=== PATIENT | female | born 1960 | race Caucasian/White ===

== ENCOUNTER 2020-04-29 13:07 | Emergency (ER) | payer MEDICARE ==
[~2020-04-29] VITALS: Ht 170.2 cm; Wt 72.6 kg
[~2020-04-29 13:07] MED LIST: AMLO5; Aspirin EC81 MG PO; BACL10 PO; CEPH500 PO; ESOM20 PO; ESTR1; KADIAN; LOVA20 PO; METF500; METF500 PO; METO100ER; METO100ER PO; METO50ER; MORPHINE; MULVITMINF; NIFE10 PO; OXYACE5T PO; PROM25 PO; Prinivil5 MG PO; SERT100; SERT50; TIZA4 PO; VICODIN
[2020-04-29 13:36] LABS: BASOPHILS ABSOLUTE AUTO 0.06 K/mm3 (0.00-0.23); BASOPHILS PERCENT AUTO 1 % (0-2); EOSINOPHILS ABSOLUTE AUTO 0.13 K/mm3 (0.00-0.68); EOSINOPHILS PERCENT AUTO 1 % (0-6); Hematocrit 48.3 % (33.0-51.0); Hemoglobin 15.6 g/dL (11.5-16.0); IMMATURE GRAN ABSOLUTE AUTO 0.02 K/mm3 (0.00-0.10); IMMATURE GRAN PERCENT AUTO 0 % (0-1); LYMPHOCYTES PERCENT AUTO 19 % (21-46); MONOCYTES ABSOLUTE AUTO 0.59 K/mm3 (0.16-1.47); MONOCYTES PERCENT AUTO 6 % (4-13); Mean Corpuscular HGB 31.6 pg (26.0-34.0); Mean Corpuscular HGB Conc 32.3 g/dL (31.5-36.5); Mean Corpuscular Volume 98 fL (80-100); NEUTROPHILS ABSOLUTE AUTO 6.74 K/mm3 (1.96-9.15); NEUTROPHILS PERCENT AUTO 72 % (41-73); Platelet Count 273 K/mm3 (150-400); RDW Coefficient Variation 13.3 % (11.7-14.2); RDW Standard Deviation 48.2 fL (35.1-46.3); Red Blood Cell Count 4.94 M/mm3 (3.80-5.20); White Blood Cell Count 9.34 K/mm3 (4.00-11.30)
[2020-04-29 14:11] LABS: Alanine Aminotransfer (ALT/SGP 41 U/L (12-78); Albumin, Blood 4.4 g/dL (3.4-5.0); Albumin/Globulin Ratio 1.2 (0.8-1.8); Alk Phos 88 U/L (50-136); Anion Gap 4 mmol/L (6-16); Aspartate Aminotrans (AST/SGOT 24 U/L (12-37); Bilirubin, Total 0.4 mg/dL (0.1-1.0); Blood Urea Nitrogen 17 mg/dL (8-24); Bun/Creatinine Ratio 22.3 (12.0-20.0); CO2, Blood 29 mmol/L (21-32); Calcium, Blood 9.4 mg/dL (8.5-10.1); Chloride, Blood 105 mmol/L (98-108); Creatinine, Blood 0.76 mg/dL (0.40-1.00); Globulin, Blood 3.6 g/dL (2.2-4.0); Glomerular Filtration Rate >60 (60-); Glucose, Blood 157 mg/dL (70-99); Potassium, Blood 4.1 mmol/L (3.5-5.5); Sodium, Blood 138 mmol/L (136-145); Troponin I <0.015 ng/mL (0.000-0.040)
== END 2020-04-29 15:15 | disposition home or self-care (01) ==
LOC: ER 13:07
PROVIDERS: Physician Assistant
DX: I10 Essential (primary) hypertension (principal); E11.9 Type 2 diabetes mellitus without complications; E66.01 Morbid (severe) obesity due to excess calories; F17.210 Nicotine dependence, cigarettes, uncomplicated
CPT/HCPCS: 36415; 70450; 80053; 82947; 84484; 85025; 93005; 93010; 96374; 99285-25; J0360

== ENCOUNTER 2020-10-08 14:18 | Observation (INO) | payer MEDICARE ==
[~2020-10-08] VITALS: Ht 167.6 cm; Wt 74.5 kg
[2020-10-08 14:55] LABS: BASOPHILS ABSOLUTE AUTO 0.06 K/mm3 (0.00-0.23); BASOPHILS PERCENT AUTO 1 % (0-2); EOSINOPHILS ABSOLUTE AUTO 0.09 K/mm3 (0.00-0.68); EOSINOPHILS PERCENT AUTO 1 % (0-6); Hematocrit 41.7 % (33.0-51.0); IMMATURE GRAN ABSOLUTE AUTO 0.04 K/mm3 (0.00-0.10); IMMATURE GRAN PERCENT AUTO 0 % (0-1); LYMPHOCYTES ABSOLUTE AUTO 1.94 K/mm3 (0.84-5.20); LYMPHOCYTES PERCENT AUTO 19 % (21-46); MONOCYTES ABSOLUTE AUTO 0.74 K/mm3 (0.16-1.47); MONOCYTES PERCENT AUTO 7 % (4-13); Mean Corpuscular HGB 31.3 pg (26.0-34.0); Mean Corpuscular HGB Conc 33.6 g/dL (31.5-36.5); Mean Corpuscular Volume 93 fL (80-100); Mean Platelet Volume 10.5 fL (9.1-12.4); NEUTROPHILS ABSOLUTE AUTO 7.29 K/mm3 (1.96-9.15); NEUTROPHILS PERCENT AUTO 72 % (41-73); Platelet Count 231 K/mm3 (150-400); RDW Coefficient Variation 13.2 % (11.7-14.2); RDW Standard Deviation 45.4 fL (35.1-46.3); Red Blood Cell Count 4.48 M/mm3 (3.80-5.20); White Blood Cell Count 10.16 K/mm3 (4.00-11.30)
[2020-10-08 15:13] LABS: International Normalized Ratio 0.96; Prothrombin Time Results 10.3 Sec (9.7-11.5)
[2020-10-08 15:43] LABS: Alanine Aminotransfer (ALT/SGP 34 U/L (12-78); Albumin, Blood 3.7 g/dL (3.4-5.0); Albumin/Globulin Ratio 1.2 (0.8-1.8); Alk Phos 78 U/L (50-136); Anion Gap 8 mmol/L (6-16); Aspartate Aminotrans (AST/SGOT 28 U/L (12-37); Bilirubin, Total 0.7 mg/dL (0.1-1.0); Blood Urea Nitrogen 16 mg/dL (8-24); Bun/Creatinine Ratio 21.7 (12.0-20.0); CO2, Blood 26 mmol/L (21-32); Calcium, Blood 9.2 mg/dL (8.5-10.1); Chloride, Blood 106 mmol/L (98-108); Creatinine, Blood 0.74 mg/dL (0.40-1.00); Ethanol (Alcohol), Blood, Med <3 mg/dL; Globulin, Blood 3.1 g/dL (2.2-4.0); Glomerular Filtration Rate >60 (60-); Glucose, Blood 209 mg/dL (70-99); Sodium, Blood 140 mmol/L (136-145); Total Protein, Blood 6.8 g/dL (6.4-8.2)
[2020-10-08 17:25] LABS: Source, Urine Catheter
[2020-10-08 17:37] LABS: Appearance, Urine Clear (Clear); Bilirubin, Urine Neg (Neg); Blood, Urine Neg (Neg); Color, Urine Yellow (P-Yellow); Glucose Qualitative, Urine Neg (Neg); Ketones, Urine Neg (Neg); Leukocyte Esterase, Urine Neg (Neg); Nitrite, Urine Neg (Neg); Protein, Urine Neg (Neg); Urobilinogen, Urine NORM (Normal); pH, Urine 6.5 (5.0-8.0)
[2020-10-08 18:23] LABS: U Amphetamine Screen Not Detected; U Barbituate Screen Not Detected; U Benzodiazapine Screen DETECTED; U Buprenorphine Screen Not Detected; U Cannabinoids Screen Not Detected; U Cocaine Screen Not Detected; U Methadone Screen Not Detected; U Methamphetamine Screen Not Detected; U Opiates Screen Not Detected; U Oxycodone Screen DETECTED; U Phencyclidine Screen Not Detected; U Propoxyphene Screen Not Detected
--- NOTE | 2020-10-09 01:12 | NUR ---
PCU ADMIT PT BROUGHT TO PCU-09 BY AMRITA FROM ER @ APPROX 2340. PT ALERT, BILAT ARMS & LEGS MOVING UNCONTROLLABLY UPON ARRIVAL OT UNIT. PT UNABLE TO VERBALIZE @ TIME OF ARRIVAL, BUT PT ABLE TO NOD HEAD YES TO CONFIRM NAME & . PT THEN ABLE TO VERBALIZE FEW WORDS INTERMITTENTLY. UNABLE TO GET BP ON EITHER L ARM OR R ARM D/T PT UNCONTROLLABLE MOVEMENTS. BP THEN ATTEMPTED ON PT RLE W/ PT STATING "YOU HAVE TO HOLD IT DOWN." BP OBTAINED. VSS. MONITOR SHOWING SR, HR 80's. SPO2 > 92% ON RA. PT W/ CONTINUED FULL BODY, SEIZURE-LIKE ACTIVITY UNTIL SCHEDULED 1X DOSE OF IV ATIVAN GIVEN PER EMAR. PT BODY THEN RELAXED & PT WENT TO SLEEP. SEIZURE PADS IN PLACE. SIDE RAILS UP. BED ALARM ON. GARRIDO CATH PATENT & DRAINING. NS GTT & KCL GTT INFUSING PER ORDERS.
[2020-10-09 04:07] LABS: BASOPHILS ABSOLUTE AUTO 0.06 K/mm3 (0.00-0.23); BASOPHILS PERCENT AUTO 1 % (0-2); EOSINOPHILS ABSOLUTE AUTO 0.05 K/mm3 (0.00-0.68); EOSINOPHILS PERCENT AUTO 0 % (0-6); Hemoglobin 13.4 g/dL (11.5-16.0); IMMATURE GRAN ABSOLUTE AUTO 0.05 K/mm3 (0.00-0.10); IMMATURE GRAN PERCENT AUTO 0 % (0-1); LYMPHOCYTES ABSOLUTE AUTO 1.64 K/mm3 (0.84-5.20); LYMPHOCYTES PERCENT AUTO 13 % (21-46); MONOCYTES ABSOLUTE AUTO 0.74 K/mm3 (0.16-1.47); MONOCYTES PERCENT AUTO 6 % (4-13); Mean Corpuscular HGB 30.3 pg (26.0-34.0); Mean Corpuscular HGB Conc 32.7 g/dL (31.5-36.5); Mean Corpuscular Volume 93 fL (80-100); Mean Platelet Volume 10.3 fL (9.1-12.4); NEUTROPHILS ABSOLUTE AUTO 9.67 K/mm3 (1.96-9.15); NEUTROPHILS PERCENT AUTO 79 % (41-73); Platelet Count 204 K/mm3 (150-400); RDW Coefficient Variation 13.3 % (11.7-14.2); RDW Standard Deviation 45.5 fL (35.1-46.3); Red Blood Cell Count 4.42 M/mm3 (3.80-5.20); White Blood Cell Count 12.21 K/mm3 (4.00-11.30)
[2020-10-09 04:25] LABS: Alanine Aminotransfer (ALT/SGP 27 U/L (12-78); Albumin, Blood 3.2 g/dL (3.4-5.0); Albumin/Globulin Ratio 1.1 (0.8-1.8); Alk Phos 70 U/L (50-136); Anion Gap 4 mmol/L (6-16); Aspartate Aminotrans (AST/SGOT 21 U/L (12-37); Bilirubin, Total 0.7 mg/dL (0.1-1.0); Blood Urea Nitrogen 16 mg/dL (8-24); Bun/Creatinine Ratio 29.5 (12.0-20.0); CO2, Blood 27 mmol/L (21-32); Calcium, Blood 8.4 mg/dL (8.5-10.1); Chloride, Blood 114 mmol/L (98-108); Creatinine, Blood 0.54 mg/dL (0.40-1.00); Globulin, Blood 2.8 g/dL (2.2-4.0); Glomerular Filtration Rate >60 (60-); Glucose, Blood 133 mg/dL (70-99); Potassium, Blood 4.3 mmol/L (3.5-5.5); Sodium, Blood 145 mmol/L (136-145)
--- NOTE | 2020-10-09 05:27 | NUR ---
UPDATE / END OF SHIFT NOTE PT WOKE THIS AM @ APPROX 0500, ABLE TO SPEAK CLEARLY IN FULL SENTENCES. PT BILAT ARMS & LEGS W/ INTERMITTENT UNCONTROLLABLE MOVEMENTS WHEN AWAKE. PT STATES "IT GETS WORSE WHEN I COUGH. IT'S OKAY RIGHT NOW. I DO THIS, I'VE DONE THIS FOR 10 YRS. IT'S LIKE I'M DRUNK BUT I HAVEN'T DRANK ANYTHING." PT TRIES TO RECALL HEALTH HX, BUT STRUGGLES TO RECALL. PT A&O TO SELF & LOCATION, UNABLE TO RECALL CURRENT MONTH OR YEAR. PT STATES "I'LL REMEMBER, I JUST CAN'T RIGHT NOW." PT REPORTS STRUGGLING SINCE PASSING OF DAUGHTER, STATING "SHE 3 YEARS AGO." THEN LATER STATING "SHE LAST YEAR. SHE OF CHF, NO THAT WAS MY WHO HAD CHF." PT UNABLE TO PROVIDE CONSISTENT HX. PT STATES HAVING TO TAKE PAIN MEDICATION FOR HER BACK THEN STATES "I FELL DOWN THE STAIRS, MY DID NOT PUSH ME. HE DIDN'T GET TO ME IN THAT WAY, JUST EMOTIONALLY." PT ASKING FOR BLANKETS TO BE KEPT OFF STATING "I'M COLD, NO, NO, I'M HOT. I'M COLD, I MEAN I'M HOT. I'LL START SWEATING. I WANT THEM OFF, I'M COLD, I MEAN HOT. GOSH. I'M SORRY." PT COOPERATIVE. VSS. MONITOR SHOWING SR-ST, HR 60's-110's. SPO2 > 92% ON 3L NC. PT DENIES USING O2 AT HOME. NS GTT INFUSING PER ORDERS. PT NPO. BED ALARM ON. WILL CONTINUE TO MONITOR & PROVIDE CARE UNTIL REPORT OFF TO DAY SHIFT RN.
--- NOTE | 2020-10-09 09:30 | NUR ---
PHYSICIAN UPDATED PHYSICIAN UPDATED ON PT'S HYPERTENSIVE STATE. MEDICATION ORDERED AND GIVEN PER EMAR. SEE EHR.
[2020-10-09 14:49] LABS: Free Thyroxine 0.88 ng/dL (0.70-1.60)
[2020-10-09 14:52] LABS: Triiodothyronine, Free 2.02 pg/mL (2.18-3.98)
--- NOTE | 2020-10-09 17:59 | NUR ---
SHIFT SUMMARY PT ALERT AND ORIENTED X 4, CONFUSED AT TIMES. TREMORS AT TIMES, MEDICATION GIVEN PER EMAR. PT REPORTS RELIEF. TREMORS DECREASE. HR STABLE. BP HYPERTENSIVE AT TIMES. PHYSICIAN NOTIFIED, SEE NOTES. MEDICATION GIVEN PER EMAR. PT ABLE TO TURN SELF IN BED NEEDED. GARRIDO PATENT TO GRAVITY DRAIN. 24 HR URINE COLLECTION IN PROGRESS. URINE DRAINAGE BAG CURRENLTY IN ICE. EEG DONE THIS AM. BED ALARM IN PLACE FOR SAFETY D/T CONFUSION AND TREMOR LIKE ACTIVITY. WILL CONTINUE TO MONITOR UNTIL REPORT GIVEN TO GRACIELA JEAN.
--- NOTE | 2020-10-09 18:09 | NUR ---
SPOKE WITH PHYSICIAN SPOKE WITH PHYSICIAN REGARDING NO PSYCH CONSULT ORDERED PER NOTES. PHYSICIAN TO CONSIDER TELEHEALTH PSYCH CONSULT TOMORROW 4/3 IF NEEDED.
--- NOTE | 2020-10-10 06:06 | NUR ---
SHIFT SUMMARY PT A&O X 3; DENIES CHEST PAIN; VSS; O2 SATS >93 ON RA; SEVERAL SNACKS BROUGHT TO PT SHE STATED SHE WAS HUNGRY; DANGLED AT BEDSIDE EATING W/ NO CONCERN; 24HR URINE BEING COLLECTED; GARRIDO PATENT & DRAINING; NO DISTRESS NOTED THIS SHIFT; CALL LIGHT IN REACH; BED IN LOWEST POSITION; WILL CONTINUE TO MONITOR CLOSELY UNTIL HAND OFF TO DAY SHIFT RN.
--- NOTE | 2020-10-10 14:49 | NUR ---
SPOKE WITH PHYSICIAN ORDERS TO REMOVE GARRIDO CATHETER
[2020-10-10] MEDS ORDERED: LISI20 PO (16:44)
[2020-10-10] MEDS ORDERED: NAPR500 PO (16:45)
[2020-10-10] MEDS ORDERED: ATOR80 PO (16:46)
[2020-10-10] MEDS ORDERED: ESOM20 PO (16:48)
[2020-10-10] MEDS ORDERED: METF500 PO (16:48)
[2020-10-10] MEDS ORDERED: BACL10 PO (16:49)
[2020-10-10] MEDS ORDERED: Oxycodone HCl20 M1 PO (16:50)
--- NOTE | 2020-10-10 18:04 | NUR ---
SHIFT SUMMARY PT ALERT AND ORIENTED X 4. CONFUSED AT TIMES. BED ALARM IN PLACE FOR PT SAFETY. BP HYPERTENSIVE, MEDICATION GIVEN PER EMAR. SEE EHR. HR STABLE. OXYGEN SATURATION MAINTAINED ABOVE 92% ON RA. NO CP OR PRESSURE REPORTED. PT'S FAMILY MEMBER BROUGHT IN PT'S HOME MEDICATIONS. MEDICATIONS RECONCILED. CONTROLLED MEDICATIONS BROUGHT TO PHARMACY. OTHER MEDICATION IN PT'S CLOSET IN ROOM WITH LABEL. DISCUSSED WITH UNDERWRITER SOLICITATION DIRECTOR. GARRIDO CATHETER REMOVED PER PHYSICIAN ORDER. 24 HOUR URINE SENT TO LAB. WILL CONTINUE TO MONITOR UNTIL REPORT GIVEN TO NIGHTSHIFT RN.
--- NOTE | 2020-10-10 18:21 | NUR ---
PHYSICIAN UPDATED PHYSICIAN UPDATED ON PT'S HYPERTENSIVE STATE. MEDICATION ORDERED PER PHYSICIAN. SEE EMAR.
--- NOTE | 2020-10-10 19:10 | NUR ---
ASSUMED CARE RECEIVED BEDSIDE REPORT FROM ARIELLARN; PT A&O X 3; DENIES CHEST PAIN; BP CONTINUES TO FLUCTUATE, ELEVATED; PO LISINOPRIL SCHEDULED; O2 SATS >93 ON RA; SITTING AT BEDSIDE W/ NO DISTRESS NOTED; BELONGINGS AND CALL LIGHT IN REACH; BED IN LOWEST POSITION.
--- NOTE | 2020-10-11 04:57 | NUR ---
SHIFT SUMMARY PT & O X 3; CONFUSED AT TIMES; IMPULSIVE, BED ALARM ON; HOWEVER PLEASANT & COMPLIANT W/ CARE; DENIES CHEST PAIN; VSS; BP INCREASING THIS AM; O2 SATS >93 ON RA; SBA FOR BRP, WEAKNESS NOTED; PO SNACKS BROUGHT TO PT PRN; CALL LIGHT IN REACH; BED IN LOWEST POSITION; WILL CONTINUE TO MONITOR CLOSELY UNTIL HAND OFF TO DAY SHIFT RN.
--- NOTE | 2020-10-11 13:27 | NUR ---
MEDICATIONS PT TO BE DISCHARGED. HOME MEDICATIONS THAT WERE HELD IN OUR PHARMACY WERE RETURNED TO PT.
[2020-10-11] MEDS ORDERED: HYDCHL25 PO (14:30)
[2020-10-11] MEDS ORDERED: NIFE30ER PO (14:31)
--- NOTE | 2020-10-11 15:29 | NUR ---
PT DISCHARGE PT DISCHARGE ORDERS PROVIDED TO PT. PT SIGNED ALL [facility]HC[facility] PAPER[facility]. CHARGE, RN CALLED MEDICATIONS INTO PREFERRED PHARMACY. ASSISTED PT IN CALLING IN [facility] TO TRANSPORT TO HOME. IV REMOVED. TELEMETRY REMOVED. PT TAKEN TO [facility] BY WHEELCHAIR BY [employer] WITH BELONGINGS.
[2020-10-13 01:11] LABS: METANEPHRINE, PL 41.3 pg/mL (0.0-88.0); NORMETANEPHRINE, PL 98.9 pg/mL (0.0-136.8)
[2020-10-14 13:09] LABS: METANEPHRINE, UR 36 ug/L (Undefined)
[2020-10-14 15:09] LABS: DOPAMINE, URINE 40 ug/L (Undefined)
== END 2020-10-11 13:30 | disposition home or self-care (01) ==
LOC: ER 14:18 → PCU 14:19
PROVIDERS: Emergency Medicine; Internal Medicine; ADMIT Internal Medicine
DX: F44.5 Conversion disorder with seizures or convulsions (principal); F44.4 Conversion disorder with motor symptom or deficit; G93.40 Encephalopathy, unspecified; I16.0 Hypertensive urgency; I10 Essential (primary) hypertension; E11.9 Type 2 diabetes mellitus without complications; F17.200 Nicotine dependence, unspecified, uncomplicated; F32.9 Major depressive disorder, single episode, unspecified; E87.6 Hypokalemia; R09.02 Hypoxemia; Z79.891 Long term (current) use of opiate analgesic; Z79.82 Long term (current) use of aspirin; Z95.820 Peripheral vascular angioplasty status with implants and grafts; Z90.89 Acquired absence of other organs
CPT/HCPCS: 36415; 51701; 70450; 71045; 76536; 80053; 81003; 81050; 82384; 82947; 83036; 83835; 84439; 84443; 84481; 85025; 85610; 86376; 93005; 93010; 95819; 96361-59; 96372; 96374-59; 96375; 96375-59; 96376; 96376-59; 99285-25; A9270; G0378; G0480; J1200; J1630; J1650; J2060; J3010; J3480; J7030

== ENCOUNTER 2020-12-12 12:08 | Observation (INO) | payer MEDICARE ==
[~2020-12-12] VITALS: Ht 177.8 cm; Wt 77.1 kg
[~2020-12-12 12:08] MED LIST changes: +ATOR80 PO; +HYDCHL25 PO; +LISI20 PO; +NAPR500 PO; +NIFE30ER PO; +Oxycodone HCl20 M1 PO
[2020-12-12 12:32] LABS: BASOPHILS ABSOLUTE AUTO 0.05 K/mm3 (0.00-0.23); BASOPHILS PERCENT AUTO 1 % (0-2); EOSINOPHILS PERCENT AUTO 1 % (0-6); Hematocrit 43.4 % (33.0-51.0); IMMATURE GRAN ABSOLUTE AUTO 0.03 K/mm3 (0.00-0.10); IMMATURE GRAN PERCENT AUTO 0 % (0-1); LYMPHOCYTES ABSOLUTE AUTO 2.08 K/mm3 (0.84-5.20); LYMPHOCYTES PERCENT AUTO 26 % (21-46); MONOCYTES ABSOLUTE AUTO 0.75 K/mm3 (0.16-1.47); MONOCYTES PERCENT AUTO 9 % (4-13); Mean Corpuscular HGB 29.5 pg (26.0-34.0); Mean Corpuscular HGB Conc 32.3 g/dL (31.5-36.5); Mean Corpuscular Volume 91 fL (80-100); Mean Platelet Volume 10.2 fL (9.1-12.4); NEUTROPHILS ABSOLUTE AUTO 5.15 K/mm3 (1.96-9.15); NEUTROPHILS PERCENT AUTO 63 % (41-73); Platelet Count 330 K/mm3 (150-400); RDW Coefficient Variation 13.1 % (11.7-14.2); RDW Standard Deviation 44.2 fL (35.1-46.3); Red Blood Cell Count 4.75 M/mm3 (3.80-5.20); White Blood Cell Count 8.16 K/mm3 (4.00-11.30)
[2020-12-12 12:53] LABS: Alanine Aminotransfer (ALT/SGP 25 U/L (12-78); Albumin, Blood 3.9 g/dL (3.4-5.0); Albumin/Globulin Ratio 1.1 (0.8-1.8); Alk Phos 92 U/L (50-136); Anion Gap 2 mmol/L (6-16); Aspartate Aminotrans (AST/SGOT 15 U/L (12-37); Bilirubin, Total 0.3 mg/dL (0.1-1.0); Blood Urea Nitrogen 12 mg/dL (8-24); Bun/Creatinine Ratio 21.8 (12.0-20.0); CO2, Blood 30 mmol/L (21-32); Calcium, Blood 8.9 mg/dL (8.5-10.1); Chloride, Blood 111 mmol/L (98-108); Creatinine, Blood 0.55 mg/dL (0.40-1.00); Ethanol (Alcohol), Blood, Med <3 mg/dL; Globulin, Blood 3.5 g/dL (2.2-4.0); Glomerular Filtration Rate >60 (60-); Glucose, Blood 175 mg/dL (70-99); Potassium, Blood 4.1 mmol/L (3.5-5.5); Sodium, Blood 143 mmol/L (136-145); Total Protein, Blood 7.4 g/dL (6.4-8.2); Troponin I <0.015 ng/mL (0.000-0.040)
[2020-12-12 13:02] LABS: U Amphetamine Screen Not Detected; U Barbituate Screen Not Detected; U Benzodiazapine Screen Not Detected; U Buprenorphine Screen Not Detected; U Cannabinoids Screen Not Detected; U Cocaine Screen Not Detected; U Methadone Screen Not Detected; U Methamphetamine Screen Not Detected; U Opiates Screen Not Detected; U Oxycodone Screen DETECTED; U Phencyclidine Screen Not Detected; U Propoxyphene Screen Not Detected
[2020-12-12 14:11] LABS: Base Excess Venous 4.5 mmol/L; Bicarbonate Venous 27.7 mmol/L (24.0-30.0); PCO2 Venous 46.9 mmHg (38-42); PO2 Venous 116 mmHg (38-42)
[2020-12-12 15:05] LABS: SARS-Cov-2 (COVID-19) PCR, MMC NEGATIVE (NEGATIVE)
[2020-12-12 16:16] LABS: Source, Urine Catheter
[2020-12-12 16:30] LABS: Appearance, Urine Hazy (Clear); Bilirubin, Urine Neg (Neg); Blood, Urine Neg (Neg); Color, Urine Yellow (P-Yellow); Glucose Qualitative, Urine 4+ (Neg); Ketones, Urine Neg (Neg); Leukocyte Esterase, Urine Neg (Neg); Nitrite, Urine Neg (Neg); Protein, Urine 2+ (Neg); Urobilinogen, Urine NORM (Normal)
[2020-12-12 16:46] LABS: Bacteria Many /hpf; Red Blood Cells, Urine Not Seen /hpf (0-2); Squamous Epithelial Cells Mod /hpf (Few); White Blood Cells, Urine 0-2 /hpf (0-5)
== END 2020-12-12 22:56 | disposition home or self-care (01) ==
LOC: ER 12:08 → EOR 12:09
PROVIDERS: ADMIT Emergency Medicine
DX: R41.82 Altered mental status, unspecified (principal); R45.1 Restlessness and agitation; I10 Essential (primary) hypertension; I25.2 Old myocardial infarction; G43.909 Migraine, unspecified, not intractable, without status migrainosus; F17.210 Nicotine dependence, cigarettes, uncomplicated; Z20.822 Contact with and (suspected) exposure to COVID-19
CPT/HCPCS: 36415; 70450; 80053; 81001; 82803; 84484; 85025; 87077; 87086; 87186; 96374; 96375; 99285-25; G0378; G0480; J1200; J1630; J2060; J7030; U0004

== ENCOUNTER 2023-04-25 19:48 | Emergency (ER) | payer OTHER, MEDICARE ==
[~2023-04-25] VITALS: Ht 162.6 cm; Wt 72.6 kg
[~2023-04-25 19:48] MED LIST changes: +BUPRENORPHINE HC2 MG SL; +GABA300 PO; +GLUCOPHAGE1000 M1 PO; +HUMALOG KW100 UNIT/1 SC; +INSULIN GL100 UNIT/2 SC; +OMEP20ER PO; +PRINIVIL5 M1 PO
[2023-04-25 20:26] LABS: BASOPHILS ABSOLUTE AUTO 0.04 K/mm3 (0.00-0.23); BASOPHILS PERCENT AUTO 0 % (0-2); EOSINOPHILS ABSOLUTE AUTO 0.18 K/mm3 (0.00-0.68); EOSINOPHILS PERCENT AUTO 2 % (0-6); Hematocrit 35.8 % (33.0-51.0); Hemoglobin 11.8 g/dL (11.5-16.0); IMMATURE GRAN ABSOLUTE AUTO 0.07 K/mm3 (0.00-0.10); IMMATURE GRAN PERCENT AUTO 1 % (0-1); LYMPHOCYTES ABSOLUTE AUTO 2.48 K/mm3 (0.84-5.20); LYMPHOCYTES PERCENT AUTO 23 % (21-46); MONOCYTES ABSOLUTE AUTO 1.31 K/mm3 (0.16-1.47); MONOCYTES PERCENT AUTO 12 % (4-13); Mean Corpuscular HGB 30.6 pg (26.0-34.0); Mean Corpuscular Volume 93 fL (80-100); Mean Platelet Volume 11.6 fL (9.1-12.4); NEUTROPHILS ABSOLUTE AUTO 6.85 K/mm3 (1.96-9.15); NEUTROPHILS PERCENT AUTO 63 % (41-73); Platelet Count 266 K/mm3 (150-400); RDW Coefficient Variation 14.2 % (11.7-14.2); RDW Standard Deviation 48.1 fL (35.1-46.3); Red Blood Cell Count 3.86 M/mm3 (3.80-5.20); White Blood Cell Count 10.93 K/mm3 (4.00-11.30)
[2023-04-25 20:39] LABS: Base Excess Venous 0.3 mmol/L; Bicarbonate Venous 24.6 mmol/L (24.0-30.0); PCO2 Venous 42.4 mmHg (38-42); pH Blood Venous 7.39 (7.34-7.37)
[2023-04-25 22:00] LABS: Albumin, Blood 2.6 g/dL (3.4-5.0); Albumin/Globulin Ratio 0.7 (0.8-1.8); Beta-hydroxybutyrate 1.5 mg/dL (0.2-2.8); Bilirubin, Total 0.2 mg/dL (0.1-1.0); Bun/Creatinine Ratio 25.7 (12.0-20.0); Calcium, Blood 8.5 mg/dL (8.5-10.1); Creatinine, Blood 0.74 mg/dL (0.40-1.00); Globulin, Blood 3.7 g/dL (2.2-4.0); Potassium, Blood 2.9 mmol/L (3.5-5.5); Total Protein, Blood 6.3 g/dL (6.4-8.2)
[2023-04-25] MEDS ORDERED: Methocarbamol500 MG PO (22:07)
[2023-04-26] MEDS ORDERED: POTCHL20ER PO (00:53)
[2023-04-26 06:38] LABS: Acetaminophen, Random <2.0 ug/mL (10.0-30.0)
[2023-04-26 18:26] LABS: Source, Urine Clean Catch
[2023-04-26 18:37] LABS: Appearance, Urine Clear (Clear); Bilirubin, Urine Neg (Neg); Blood, Urine Neg (Neg); Color, Urine Yellow (P-Yellow); Glucose Qualitative, Urine 3+ (Neg); Ketones, Urine 1+ (Neg); Leukocyte Esterase, Urine Neg (Neg); Nitrite, Urine Neg (Neg); Protein, Urine 1+ (Neg); Urobilinogen, Urine NORM (Normal)
[2023-04-26 19:18] LABS: U Amphetamine Screen Not Detected; U Barbituate Screen Not Detected; U Benzodiazapine Screen DETECTED; U Buprenorphine Screen Not Detected; U Cannabinoids Screen DETECTED; U Cocaine Screen Not Detected; U Methadone Screen Not Detected; U Methamphetamine Screen Not Detected; U Opiates Screen Not Detected; U Oxycodone Screen DETECTED; U Phencyclidine Screen Not Detected; U Propoxyphene Screen Not Detected
[2023-04-26 21:15] VITALS: BP 148/72
[2023-04-26] MEDS ORDERED: POTA10T PO (21:33)
== END 2023-04-26 21:50 | disposition home or self-care (01) ==
LOC: ER 19:48
PROVIDERS: Emergency Medicine
DX: S09.90XA Unspecified injury of head, initial encounter (principal); R45.1 Restlessness and agitation; E87.6 Hypokalemia; W01.10XA Fall on same level from slipping, tripping and stumbling with subsequent striking against unspecified object, initial encounter; F17.210 Nicotine dependence, cigarettes, uncomplicated; I10 Essential (primary) hypertension; G43.909 Migraine, unspecified, not intractable, without status migrainosus; I25.2 Old myocardial infarction; Z88.8 Allergy status to other drugs, medicaments and biological substances; Z79.899 Other long term (current) drug therapy; Z79.4 Long term (current) use of insulin
CPT/HCPCS: 36415; 51701; 51798; 70450; 71045; 80053; 82010; 82140; 82803; 82947; 85025; 93005; 93010; 96361; 96365; 96366; 96375; 96376; 99285-25; A9270; G0480; J1885; J2060; J3480; J7030; J7050

== ENCOUNTER 2023-05-21 18:31 | Inpatient (IN) | payer MEDICARE ==
[~2023-05-21] VITALS: Ht 170.2 cm; Wt 75.1 kg
[~2023-05-21 18:31] MED LIST changes: +Methocarbamol500 MG PO; +POTA10T PO; +POTCHL20ER PO
[2023-05-21] MEDS ORDERED: ESCI10 PO (18:57)
[2023-05-21] MEDS ORDERED: HYDCHL25 PO (18:57)
[2023-05-21] MEDS ORDERED: OXYC5 PO (18:58)
[2023-05-21 19:10] LABS: BASOPHILS ABSOLUTE AUTO 0.06 K/mm3 (0.00-0.23); BASOPHILS PERCENT AUTO 1 % (0-2); EOSINOPHILS PERCENT AUTO 1 % (0-6); Hematocrit 38.3 % (33.0-51.0); Hemoglobin 12.4 g/dL (11.5-16.0); IMMATURE GRAN ABSOLUTE AUTO 0.05 K/mm3 (0.00-0.10); IMMATURE GRAN PERCENT AUTO 1 % (0-1); LYMPHOCYTES ABSOLUTE AUTO 2.76 K/mm3 (0.84-5.20); LYMPHOCYTES PERCENT AUTO 25 % (21-46); MONOCYTES ABSOLUTE AUTO 1.15 K/mm3 (0.16-1.47); MONOCYTES PERCENT AUTO 11 % (4-13); Mean Corpuscular HGB 28.3 pg (26.0-34.0); Mean Corpuscular HGB Conc 32.4 g/dL (31.5-36.5); Mean Corpuscular Volume 87 fL (80-100); Mean Platelet Volume 10.9 fL (9.1-12.4); NEUTROPHILS ABSOLUTE AUTO 6.76 K/mm3 (1.96-9.15); NEUTROPHILS PERCENT AUTO 62 % (41-73); Platelet Count 298 K/mm3 (150-400); RDW Coefficient Variation 13.2 % (11.7-14.2); RDW Standard Deviation 42.3 fL (35.1-46.3); Red Blood Cell Count 4.38 M/mm3 (3.80-5.20); White Blood Cell Count 10.88 K/mm3 (4.00-11.30)
[2023-05-21 19:20] LABS: Albumin, Blood 4.2 g/dL (3.4-5.0); Albumin/Globulin Ratio 1.2 (0.8-1.8); Bilirubin, Total 0.3 mg/dL (0.1-1.0); Bun/Creatinine Ratio 21.6 (12.0-20.0); Calcium, Blood 9.9 mg/dL (8.5-10.1); Creatinine, Blood 1.39 mg/dL (0.40-1.00); Globulin, Blood 3.4 g/dL (2.2-4.0); Potassium, Blood 4.5 mmol/L (3.5-5.5); Total Protein, Blood 7.6 g/dL (6.4-8.2)
[2023-05-21 19:59] LABS: Base Excess Venous -2.9 mmol/L; Bicarbonate Venous 21.9 mmol/L (24.0-30.0); PCO2 Venous 44.6 mmHg (38-42); pH Blood Venous 7.32 (7.34-7.37)
[2023-05-21 20:27] LABS: Source, Urine Straight Cath
[2023-05-21 20:33] LABS: Influenza A, PCR NEGATIVE (NEGATIVE); Influenza B, PCR NEGATIVE (NEGATIVE); Resp Syncytial Virus, PCR NEGATIVE (NEGATIVE); SARS-Cov-2 (COVID-19) PCR, MMC NEGATIVE (NEGATIVE)
[2023-05-21 20:35] LABS: Bilirubin, Urine Neg (Neg); Blood, Urine Neg (Neg); Glucose Qualitative, Urine Neg (Neg); Ketones, Urine Neg (Neg); Leukocyte Esterase, Urine 1+ (Neg); Nitrite, Urine Neg (Neg); Protein, Urine Neg (Neg); Specific Gravity, Urine 1.015 (1.003-1.022); Urobilinogen, Urine NORM (Normal)
[2023-05-21 20:44] LABS: Appearance, Urine Clear (Clear); Color, Urine Yellow (P-Yellow)
[2023-05-21 20:45] LABS: Amorphous Light (0-Heavy); Bacteria Few /hpf; Mucus Light (0-Heavy); Red Blood Cells, Urine Not Seen /hpf (0-2); Squamous Epithelial Cells Few /hpf (Few); White Blood Cells, Urine 0-2 /hpf (0-5)
[2023-05-21 20:59] LABS: U Amphetamine Screen Not Detected; U Barbituate Screen Not Detected; U Benzodiazapine Screen Not Detected; U Buprenorphine Screen DETECTED; U Cannabinoids Screen DETECTED; U Cocaine Screen Not Detected; U Methadone Screen Not Detected; U Methamphetamine Screen Not Detected; U Opiates Screen Not Detected; U Oxycodone Screen DETECTED; U Phencyclidine Screen Not Detected; U Propoxyphene Screen Not Detected
--- NOTE | 2023-05-22 00:15 | NUR ---
ADMIT NOTE; PT ARRIVES FROM ED VIA ED GURNEY. UPON ADMIT THE PT IS THRASHING IN BED AND YELLING POTTY. PT IS AXO X1 AND DOES NOT FOLLOW DIRECTIONS. PT DOES NOT ANSWER QUESTIONS. THE PT WAS TRANSFERED FROM THE ED GURNEY TO THE HOSPITAL BED VIA SLIDER SHEET. THE PTS GRANDSON IN LAW, WHICH IS WHO SHE LIVES WITH IS AT BEDSIDE. 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 THE PT DOES NOT APPEAR TO BE EXPERIENCING ANY PAIN AT THIS TIME. A GARRIDO CATHETER WAS PLACED DUE TO THE PT RETAINING MORE THAN 2000 MLS OF URINE. AFTER DRAINING THE PTS BLADDER, THE PT CALMED DOWN SOME WHAT. CURRENTLY THE PT IS LAYING IN BED WITH THE BED IN THE LOWEST POSITION AND THE CALL LIGHT AT BEDSIDE. FIRE EDUCATION PROVIDED AND IGNITION RISK ASSESSED, THE PTS [employer]ANDSON IN [employer] STATES THAT THE PT DOES NOT HAVE ANY POSSIBLE IGNITION SOURCES IN POSSESSION.
[2023-05-22 01:05] VITALS: BP 104/52
[2023-05-22 01:48] LABS: Source, Urine Foley catheter
[2023-05-22 01:57] LABS: Bilirubin, Urine Neg (Neg); Blood, Urine Neg (Neg); Glucose Qualitative, Urine Neg (Neg); Ketones, Urine Neg (Neg); Leukocyte Esterase, Urine Neg (Neg); Nitrite, Urine Neg (Neg); Protein, Urine Neg (Neg); Specific Gravity, Urine 1.015 (1.003-1.022); Urobilinogen, Urine NORM (Normal)
[2023-05-22 02:10] LABS: Appearance, Urine Clear (Clear); Color, Urine Yellow (P-Yellow)
--- NOTE | 2023-05-22 04:12 | NUR ---
SHIFT SUMMARY; NO ACUTE CHANGES SINCE ADMIT. THE PT IS AXO X1 AND CONTINUALLY TRIES TO GET OUT OF BED AND IS YELLING. THE PT IS IN A DIPTI VEST AND TRIES TO PULL AT THAT WELL. THE PTS SPEECH IS INCOMPREHENSIBLE. THE PT HAS A 1;1 SITTER. THE PT HAD A GARRIDO PLACED LAST NIGHT FOR >2000MLS OF URINE RETENTION, THE GARRIDO IS STILL PATENT AND DRAINING YELLOW URINE. THE PT HAS SPORATIC JERKING MOVEMENTS, NOTICEABLY PRESENT WHEN SHE TRIES TO RELAX AND OR WHEN SHE IS ALMOST ASLEEP. THE PT DOES NOT APPEAR TO BE IN PAIN AT TIMES AND AT OTHER TIMES THE PT DOES APPEAR TO BE IN PAIN, UNCLEAR R/T TO THE PTS INABILITY TO COMMUNICATE AT THIS TIME. THE PT WAS MEDICATED X1 THIS AM FOR PAIN, THE PT SEEMS SLIGHTLY MORE RELAXED THIS AM. CURRENTLY THE PT IS LAYING IN BED MAKING NOISES, THE BED IS IN THE LOWEST POSITION AND THE CALL LIGHT IS WITHIN REACH. FIRE SAFETY CHECKS COMPLETED.
[2023-05-22 05:20] LABS: BASOPHILS ABSOLUTE AUTO 0.03 K/mm3 (0.00-0.23); BASOPHILS PERCENT AUTO 0 % (0-2); EOSINOPHILS ABSOLUTE AUTO 0.15 K/mm3 (0.00-0.68); EOSINOPHILS PERCENT AUTO 2 % (0-6); Hematocrit 33.2 % (33.0-51.0); Hemoglobin 10.8 g/dL (11.5-16.0); IMMATURE GRAN ABSOLUTE AUTO 0.02 K/mm3 (0.00-0.10); IMMATURE GRAN PERCENT AUTO 0 % (0-1); LYMPHOCYTES ABSOLUTE AUTO 1.84 K/mm3 (0.84-5.20); LYMPHOCYTES PERCENT AUTO 24 % (21-46); MONOCYTES ABSOLUTE AUTO 0.79 K/mm3 (0.16-1.47); MONOCYTES PERCENT AUTO 11 % (4-13); Mean Corpuscular HGB 28.8 pg (26.0-34.0); Mean Corpuscular HGB Conc 32.5 g/dL (31.5-36.5); Mean Corpuscular Volume 89 fL (80-100); Mean Platelet Volume 10.7 fL (9.1-12.4); NEUTROPHILS ABSOLUTE AUTO 4.71 K/mm3 (1.96-9.15); NEUTROPHILS PERCENT AUTO 62 % (41-73); Platelet Count 245 K/mm3 (150-400); RDW Coefficient Variation 13.5 % (11.7-14.2); RDW Standard Deviation 43.8 fL (35.1-46.3); Red Blood Cell Count 3.75 M/mm3 (3.80-5.20); White Blood Cell Count 7.54 K/mm3 (4.00-11.30)
[2023-05-22 05:58] LABS: Albumin, Blood 3.6 g/dL (3.4-5.0); Albumin/Globulin Ratio 1.2 (0.8-1.8); Bilirubin, Total 0.4 mg/dL (0.1-1.0); Bun/Creatinine Ratio 25.5 (12.0-20.0); Creatinine, Blood 1.02 mg/dL (0.40-1.00); Potassium, Blood 3.8 mmol/L (3.5-5.5); Total Protein, Blood 6.6 g/dL (6.4-8.2)
--- NOTE | 2023-05-22 06:09 | NUR ---
UPDATE; ATTEMPTED AM VITALS X2 BUT PATIENT IS AGITATED THIS AM AND CAN NOT TOLERATE GETTING HER BLOOD PRESSURE TAKEN. PT IS PULLING AGAINST HER DIPTI AND THRASHING IN BED.
[2023-05-22 07:10] VITALS: BP 124/93
[2023-05-22 15:12] VITALS: BP 105/73
--- NOTE | 2023-05-22 15:17 | NUR ---
WOUND CARE PT WITH SURGICAL DEHISCENCE IN BL GROIN. WOUNDS CLEANSED WITH DERMAL WOUND, SILVASORB GEL TO WOUND BEDS COVERED BY MEDIPORE BORDERED GAUZE. THIS SHOULD BE CHANGED 3X WEEK, SOILED OR DISLODGED. WOUND PHOTO AND ASSESSMENT IN HARD CHART
--- NOTE | 2023-05-22 17:38 | NUR ---
SHIFT SUMMARY: PT CURRENTLY ORIENTED TO SELF, PLACE, AND PERSON. PT VERY AGITATED UPON ARRIVAL TO DAY SHIFT. RAMBLING SAME WORDS OVER AND OVER AND TEARING AT RESTRAINTS. CALLED HOSPITALIST AND ABLE TO HAVE ORDER PLACED FOR 5MG. SITTER STATED IT HELPED A LITTLE BUT STILL VERY ANXIOUS AND AGITATED. 10MG IV ZYPREXA ADMINISTERED AND PT ABLE TO SLEEP FOR SEVERAL HOURS. PT WOKE AROUND 1500 AND ABLE TO ANSWER QUESTIONS AND EXPLAIN TO STAFF HER NEEDS. PT HAS BEEN VERY PLEASANT REST OF SHIFT. SITTER IN PLACE. ANTICIPATING D/C SITTER SOON. CALL LIGHT IN REACH. BED IN LOWEST POSITION.
[2023-05-22 19:10] VITALS: BP 118/59
--- NOTE | 2023-05-23 04:25 | NUR ---
SHIFT SUMMARY; NO ACUTE CHANGES OVERNIGHT, THE PT IS AXO X3 AND BEDREST. THE PT HAS BEEN SLEEPING IN BED FOR THE DURATION OF THE SHIFT. THE PTS MENTATION HAS IMPROVED SIGNIFICANTLY IN COMPARISON TO YESTERDAY. THE PT HAS A GARRIDO, IT IS PATNET AND DRAINING TO GRAVITY. THE PT HAS DENIED ANY SOB, CHEST PAIN/PRESSURE, N/V AND OR PAIN. CURRENTLY THE PT IS SLEEPING IN BED WITH THE BED IN THE LOWEST POSITION AND THE CALL LIGHT AT BEDSIDE. FIRE SAFETY ROUNDS COMPLETED.
[2023-05-23 04:59] VITALS: BP 143/91
[2023-05-23 05:07] LABS: BASOPHILS ABSOLUTE AUTO 0.04 K/mm3 (0.00-0.23); BASOPHILS PERCENT AUTO 1 % (0-2); EOSINOPHILS PERCENT AUTO 4 % (0-6); Hemoglobin 10.5 g/dL (11.5-16.0); IMMATURE GRAN ABSOLUTE AUTO 0.02 K/mm3 (0.00-0.10); IMMATURE GRAN PERCENT AUTO 0 % (0-1); LYMPHOCYTES PERCENT AUTO 35 % (21-46); MONOCYTES ABSOLUTE AUTO 0.55 K/mm3 (0.16-1.47); MONOCYTES PERCENT AUTO 12 % (4-13); Mean Corpuscular HGB 28.7 pg (26.0-34.0); Mean Corpuscular HGB Conc 31.8 g/dL (31.5-36.5); Mean Corpuscular Volume 90 fL (80-100); Mean Platelet Volume 10.5 fL (9.1-12.4); NEUTROPHILS ABSOLUTE AUTO 2.23 K/mm3 (1.96-9.15); NEUTROPHILS PERCENT AUTO 48 % (41-73); Platelet Count 236 K/mm3 (150-400); RDW Coefficient Variation 13.4 % (11.7-14.2); RDW Standard Deviation 44.3 fL (35.1-46.3); Red Blood Cell Count 3.66 M/mm3 (3.80-5.20); White Blood Cell Count 4.64 K/mm3 (4.00-11.30)
[2023-05-23 05:39] LABS: Bilirubin, Total 0.3 mg/dL (0.1-1.0); Bun/Creatinine Ratio 20.7 (12.0-20.0); Calcium, Blood 8.3 mg/dL (8.5-10.1); Creatinine, Blood 0.63 mg/dL (0.40-1.00); Globulin, Blood 2.9 g/dL (2.2-4.0); Potassium, Blood 3.6 mmol/L (3.5-5.5); Total Protein, Blood 5.9 g/dL (6.4-8.2)
[2023-05-23 07:07] VITALS: BP 123/62
--- NOTE | 2023-05-23 18:03 | NUR ---
DISCHARGE: PT D/C @1705 VIA WHEELCHAIR WITH GRANDSON IN [employer]. IV IN RAC AND LAC REMOVED W/O COMPLICATIONS. NO NEW MEDS TO SEND TO PHARMACY. PT STATES SHE HAS A PCP IN [place] BUT ABLE TO GET IN WITH DOCTOR IN [place]. RECOMMENDED TO CALL FOR FOLLOW-UP APT WITHIN ONE WEEK. PT C/O PAIN IN LEFT TOES PRIOR TO D/C. SAME COLOR AND SIZE NOTED ON BOTH FEET. PT ABLE TO WALK TO BATHROOM W/O COMPLICATIONS. RECOMMENDED PT TALK TO PCP AT FOLLOW-UP APT IF PAIN WORSENS.
== END 2023-05-23 17:07 | disposition home or self-care (01) | DRG 91 ==
LOC: ER 18:31 → MEDS 23:42
PROVIDERS: Emergency Medicine; Family Medicine; Student in an Organized Health Care Education/Training Program; ADMIT Internal Medicine
DX: G92.8 Other toxic encephalopathy (principal); J96.01 Acute respiratory failure with hypoxia; N17.9 Acute kidney failure, unspecified; E11.9 Type 2 diabetes mellitus without complications; I95.9 Hypotension, unspecified; E86.0 Dehydration; G47.33 Obstructive sleep apnea (adult) (pediatric); F44.9 Dissociative and conversion disorder, unspecified; I10 Essential (primary) hypertension; G89.29 Other chronic pain; M54.9 Dorsalgia, unspecified; E66.01 Morbid (severe) obesity due to excess calories; F17.210 Nicotine dependence, cigarettes, uncomplicated; T40.2X5A Adverse effect of other opioids, initial encounter; Z88.5 Allergy status to narcotic agent; Z87.19 Personal history of other diseases of the digestive system; Z68.28 Body mass index [BMI] 28.0-28.9, adult; Z95.820 Peripheral vascular angioplasty status with implants and grafts; Z79.84 Long term (current) use of oral hypoglycemic drugs; Z28.21 Immunization not carried out because of patient refusal
CPT/HCPCS: 0241U; 36415; 70450; 71045; 80053; 81001; 81003; 82803; 82947; 83605; 84484; 85025; 93005; 93010; 96361; 96365; 96372; 96375; 99285-25; A9270; J0295; J1650; J2060; J3010; J7030; J7050; J7120; P9612